=== PATIENT | female | born 1960 | race Caucasian/White ===

== ENCOUNTER → 2017-07-17 | Outpatient (CLI) | payer BC ==
--- NOTE | 2017-07-17 13:56 | Diagnostic Imaging Report ---
INDICATION: Routine screening. Comparison is made with prior studies from 01/18/2015 and 01/17/2014. The current study was also evaluated with a Computer Aided Detection (CAD) system. FINDINGS: Scattered fibronodular densities are identified bilaterally. The parenchymal pattern is stable. No dominant mass or malignant-appearing microcalcifications are seen. There are benign calcifications bilaterally. The axillae are unremarkable. IMPRESSION: No mammographic features suspicious for malignancy are identified. ACR BI-RADS Category 2: Benign findings. Result letter will be mailed to the patient. Note: At least 10% of breast cancer is not imaged by mammography. Dictated by: Dictated on workstation # [id number]
== END ==
LOC: RAD 08:15
PROVIDERS: ATTEND Family Medicine
DX: Z12.31 Encounter for screening mammogram for malignant neoplasm of breast (principal)
CPT/HCPCS: 77067

== ENCOUNTER → 2018-07-19 | Outpatient (CLI) | payer BC ==
--- NOTE | 2018-07-20 12:54 | Diagnostic Imaging Report ---
INDICATION: Routine screening. COMPARISON: 07/17/2017 and 01/18/2015. TECHNIQUE: 2D and 3D bilateral screening mammography was performed with CAD. FINDINGS: Scattered fibroglandular densities are identified bilaterally. Occasional benign calcifications are noted. The parenchymal pattern is stable. No mass or malignant appearing microcalcifications are seen. IMPRESSION: No mammographic features suspicious for malignancy are identified. ACR BI-RADS Category 2: Benign findings. Result letter will be mailed to the patient. Note: At least 10% of breast cancer is not imaged by mammography. Dictated by: Dictated on workstation # [id number]
== END ==
LOC: RAD 08:25
PROVIDERS: ATTEND Family Medicine
DX: Z12.31 Encounter for screening mammogram for malignant neoplasm of breast (principal)
CPT/HCPCS: 77067

== ENCOUNTER → 2020-07-24 | Outpatient (CLI) | payer BC ==
--- NOTE | 2020-07-24 12:27 | Diagnostic Imaging Report ---
Indication: Routine screening. Comparison is made with prior mammogram 07/19/2018 and 07/17/2017. 2-D and 3-D bilateral screening mammography was performed with CAD. Scattered fibro-glandular densities are identified bilaterally. The parenchymal pattern is stable. No mass or malignant appearing microcalcifications are seen. Benign calcifications are noted. Axillae are unremarkable. IMPRESSION: BI-RADS Category 2 No mammographic features suspicious for malignancy are identified. ACR BI-RADS Category 2: Benign findings. Result letter will be mailed to the patient. Note: At least 10% of breast cancer is not imaged by mammography. Dictated by: Dictated on workstation # [id number]
== END ==
LOC: RAD 07:45
PROVIDERS: ATTEND Family Medicine
DX: Z12.31 Encounter for screening mammogram for malignant neoplasm of breast (principal)
CPT/HCPCS: 77063; 77067

== ENCOUNTER 2020-09-27 06:28 | Outpatient (CLI) | payer BC ==
[~2020-09-27] VITALS: Ht 177.8 cm; Wt 73.9 kg
[2020-10-03] MEDS ORDERED: AMLO-251 PO (16:07)
[2020-10-03] MEDS ORDERED: NF-VITD400 PO (16:07)
[2020-10-03] MEDS ORDERED: CITA10TA7 PO (16:07)
[2020-10-03] MEDS ORDERED: ATOR20TA66 PO (16:07)
== END 2020-10-03 16:21 | disposition home or self-care (01) ==
LOC: PREOP 06:28
PROVIDERS: ATTEND Surgery
DX: Z01.818 Encounter for other preprocedural examination (principal)

== ENCOUNTER 2020-10-08 10:18 | Day surgery (SDC) | payer BC ==
[~2020-10-08] VITALS: Ht 177.8 cm; Wt 73.9 kg
[~2020-10-08 10:18] MED LIST: AMLO-251 PO; ATOR20TA66 PO; CITA10TA7 PO; NF-VITD400 PO
[2020-10-08 10:20] VITALS: BP 139/80
[2020-10-08] MEDS ORDERED: LACTATED RINGERS 1,000 ML IV ONE (10:26)
[2020-10-08] MEDS ORDERED: PROPOFOL INJECTION 50 ML IV ONE (11:12)
[2020-10-08] MEDS ORDERED: MIDAZOLAM 2 MG/2 ML (VERSED) VIAL ONE (11:12)
[2020-10-08] MEDS ORDERED: LACTATED RINGERS 1,000 ML IV STA (11:15)
[2020-10-08 11:30] VITALS: BP 95/53
[2020-10-08 11:35] VITALS: BP 108/61
[2020-10-08 11:40] VITALS: BP_SYST 104; BP_SYST 106; BP_DIAS 62; BP_DIAS 70
[2020-10-08 12:15] VITALS: BP 143/77
--- NOTE | 2020-10-08 12:42 | Progress Note-Post Operative ---
Post-Operative Progess Note Surgeon (s)/Edi Architect (s) Surgeon ROBERT CLARK DO Edi Architect: HARRY Saeed Pre-Operative Diagnosis screening colon Post-Operative Diagnosis Polyp Anal papilla int hemorrhoids Procedure & Operative Findings Date of Procedure 10/08/20 Procedure Performed/Findings Colonoscopy with cold biopsy PROCEDURE NOTE: After informed consent was obtained, the patient was brought to the endoscopy suite, placed in bed in left lateral decubitus position. She was administered IV sedation by the [employer] who then monitored her vitals the entire time, heart rate, blood pressure and pulse ox, started the colonoscopy. Pushed all the way to the cecum about 150 cm in, took a picture of the appendiceal orifice and noted the ileo-cecal valve. Then slowly withdrew the scope insufflating to look circumferentially at the christie looking at the cecum, up the ascending colon, to the hepatic flexure, down the transverse colon, to the splenic flexure, into the descending colon down into the sigmoid. In the sigmoid I saw a very small flat polyp and elected to do a cold biopsy. Finally into the rectum, retroflexed in the rectal vault, saw some minimal internal hemorrhoids and took a picture. Then removed the scope. The patient tolerated the procedure. She was recovered in endoscopy suite. Anesthesia Type IV sedation by [employer] Estimated Blood Loss Estimated blood loss (mL): scant Specimens/Packing Specimens Removed sigmoid polyp ROBERT CLARK DO Oct 08, 2020 12:42
--- NOTE | 2020-10-08 12:42 | Endoscopy Discharge Instruct ---
Endo Procedure/Findings Findings 1.: Polyp 2.: Internal Hemorrhoids Discharge Instructions - Activity: You might feel a little sleepy until tomorrow. This is due to the medicine you received to relax you. Until tomorrow, you should: NOT drive a car, operate machinery or power tools. NOT drink any alcoholic beverages. NOT make any important decisions or sign importortant papers. Do not return to work until tomorrow, unless otherwise instructed. Resume previous activities tomorrow. Diet: Start by taking liquids. If you tolerate liquids, advance to solid food. 1.: Colonscopy in 5 years Notify Physician - If you experience excessive bleeding, unusual abdominal pain, fever, or chest pain, contact your doctor immediately. ROBERT CLARK DO Oct 08, 2020 12:42
[2020-10-08 12:55] VITALS: BP 143/77
--- NOTE | 2020-10-08 13:09 | Anesthesia-General Post-Op ---
MAC Patient Condition Mental Status/LOC: Same as Preop Cardiovascular: Satisfactory Nausea/Vomiting: Absent Respiratory: Satisfactory Pain: Controlled Complications: Absent Post Op Complications Complications None Follow Up Care/Instructions Patient Instructions None needed. Anesthesiology Discharge Order Discharge Order Patient is doing well, no complaints, stable vital signs, no apparent adverse anesthesia problems. No complications reported per nursing. DAMARIS ALANIZ CRNA Oct 08, 2020 13:09
== END 2020-10-08 12:55 | disposition home or self-care (01) ==
LOC: ENDO 10:18
PROVIDERS: ATTEND Surgery
DX: Z12.11 Encounter for screening for malignant neoplasm of colon (principal); K63.5 Polyp of colon; K64.8 Other hemorrhoids; I10 Essential (primary) hypertension; Z79.899 Other long term (current) drug therapy

== ENCOUNTER → 2021-12-18 | Outpatient (CLI) | payer BC ==
[~2021-12-18] MED LIST changes: -CITA10TA7 PO; +CITA10TA9 PO
--- NOTE | 2021-12-18 12:25 | Diagnostic Imaging Report ---
INDICATION: Routine screening. COMPARISON: 07/24/2020 and 07/19/2018. TECHNIQUE: 2D and 3D bilateral screening mammography was performed with CAD. FINDINGS: Scattered fibroglandular densities are identified bilaterally. The parenchymal pattern is stable. No mass or malignant-appearing microcalcifications are seen. There are benign calcifications. IMPRESSION: No mammographic features suspicious for malignancy are identified. ACR BI-RADS Category 2: Benign findings. Result letter will be mailed to the patient. Note: At least 10% of breast cancer is not imaged by mammography. Dictated by: Dictated on workstation # [id number]
== END ==
LOC: RAD 08:03
PROVIDERS: ATTEND Family Medicine
DX: Z12.31 Encounter for screening mammogram for malignant neoplasm of breast (principal)
CPT/HCPCS: 77063; 77067

== ENCOUNTER → 2023-02-04 | Outpatient (CLI) | payer BC ==
--- NOTE | 2023-02-04 22:24 | Diagnostic Imaging Report ---
INDICATION: Routine screening. Comparison is made with prior mammogram from 12/18/2021 and 07/24/2020. 2-D and 3-D bilateral screening mammography was performed with CAD. Scattered fibroglandular densities are identified bilaterally. The parenchymal pattern is stable. No mass or malignant-appearing microcalcifications are identified. There are benign calcifications. Axillae are unremarkable. IMPRESSION: No mammographic features suspicious for malignancy are identified. ACR BI-RADS Category 2: Benign findings. Result letter will be mailed to the patient. Note: At least 10% of breast cancer is not imaged by mammography. BI-RADS Category 2 Dictated on workstation # [id number]
== END ==
LOC: RAD 07:55
PROVIDERS: ATTEND Family Medicine
DX: Z12.31 Encounter for screening mammogram for malignant neoplasm of breast (principal)
CPT/HCPCS: 77063; 77067